=== PATIENT | female | born 1990 | race African-American/Black ===

== ENCOUNTER 2022-10-14 03:20 | Emergency (ER) | payer SELFPAY ==
[~2022-10-14] VITALS: Ht 170.2 cm; Wt 77.1 kg
--- NOTE | 2022-10-14 03:41 | NUR ---
Patient discharged to home in stable condition. Written and verbal after care instructions given. Patient verbalizes understanding of instructions. Stressed follow up or return to ER for worsening s/s.
== END 2022-10-14 03:42 | disposition home or self-care (01) ==
LOC: ER 03:20
DX: T16.1XXA Foreign body in right ear, initial encounter (principal); X58.XXXA Exposure to other specified factors, initial encounter; Y92.89 Other specified places as the place of occurrence of the external cause; F17.210 Nicotine dependence, cigarettes, uncomplicated
CPT/HCPCS: A4663